=== PATIENT | male | born 1985 | race African-American/Black ===

== ENCOUNTER 2020-07-04 01:29 | Observation (INO) ==
[2020-07-04] MEDS ORDERED: NITROGLYCERIN 2% OINT 1 INCH/GM PACK TOP STA (02:02)
[2020-07-04] MEDS ORDERED: FUROSEMIDE 40 MG/4 ML VIAL IV STA (02:02)
[2020-07-04] MEDS ORDERED: FUROSEMIDE 40 MG/4 ML VIAL ONE (02:02)
[2020-07-04] MEDS ORDERED: NITROGLYCERIN 2% OINT 1 INCH/GM PACK TOP ONE (02:02)
[2020-07-04 02:39] LABS: Basophils % 0.2 % (0.0-0.8); Eosinophils # 0.2 10*3/uL (0.0-0.87); Eosinophils % 1.4 % (0.00-10.9); Hemoglobin 14.3 GM/DL (14.0-18.0); Immature Granulocytes % 0.4 %; Immature Granulocytes Absolute 0.04 #; Lymphocytes # 1.2 10*3/uL (1.4-4.0); Lymphocytes % 11.1 % (21.2-54.2); Mean Corpuscular HGB Conc 31.8 GM/DL (32-36); Mean Platelet Volume 10.6 FL (9.6-12.0); Monocytes % 5.5 % (1.7-12.7); Neutrophils % 81.4 % (38.7-73.9); Platelet Count 269 T/CUMM (130-400); Red Blood Count 4.89 MC/CUMM (3.8-5.5)
[2020-07-04 03:01] LABS: Alanine Aminotransferase 95 U/L (16-61); Albumin 3.5 G/DL (3.4-5.0); Alkaline Phosphatase 113 U/L (45-117); Aspartate Amino Transferase 90 U/L (0-37); Bilirubin,Total < 0.39 MG/DL (0.2-1.0); Blood Urea Nitrogen 17 MG/DL (7-18); Calcium 9.5 MG/DL (8.5-10.1); Carbon Dioxide 29 MMOL/L (21-32); Estimated Glom Filtration Rate 140 ML/MIN; Glucose 189 MG/DL (74-106); Osmolality,Calculated 279.8 MOS/KG (273-304); Potassium 3.4 MMOL/L (3.5-5.1); Sodium 137 MMOL/L (136-145); Total Protein 7.2 G/DL (6.4-8.3)
[2020-07-04] MEDS ORDERED: NICOTINE 21 MG/24 HR PATCH TRANSDERM PRN (05:45)
[2020-07-04] MEDS ORDERED: ONDANSETRON 4 MG/2 ML VIAL IV PRN (05:45)
[2020-07-04] MEDS ORDERED: ACETAMINOPHEN 325 MG TABLET PO PRN (05:45)
[2020-07-04] MEDS ORDERED: ENOXAPARIN 40 MG/0.4 ML SYRINGE SUBCUT SCH (06:00)
[2020-07-04] MEDS ORDERED: lisinopriL 10 MG TABLET PO STA (06:07)
[2020-07-04] MEDS: ALBUTEROL 2.5 MG/3 ML NEB RESP TX SCH ×3 (07:50→19:52)
[2020-07-04] MEDS ORDERED: lisinopriL 10 MG TABLET PO SCH (09:00)
[2020-07-04] MEDS: FUROSEMIDE 40 MG/4 ML VIAL IV SCH (09:10)
[2020-07-04] MEDS: POTASSIUM CHLORIDE 20 MEQ TABLET PO PRN (09:10)
[2020-07-04] MEDS: PANTOPRAZOLE 40 MG TABLET PO SCH (09:10)
[2020-07-04] MEDS ORDERED: POTASSIUM CHLORIDE 20 MEQ TABLET PO ONE (10:25)
[2020-07-04] MEDS ORDERED: lisinopriL 10 MG TABLET PO ONE (11:00)
[2020-07-04] MEDS ORDERED: ENOXAPARIN 100 MG/ML SYRINGE SUBCUT ONE (11:00)
[2020-07-04 11:03] LABS: Hepatitis B Core IgM Quant < 0.05 Index; Hepatitis B Surface Ag Quant 0.19 Index; Hepatitis B Surface Ag Result Non-Reactive (NonReactive); Hepatitis C Virus Ab Quant 0.06 Index; Hepatitis C Virus Ab Result Non-Reactive (NonReactive)
[2020-07-04] MEDS: cefTRIAXone 1,000 MG in SYRINGE 1 EACH IV SCH (11:38)
[2020-07-04] MEDS: AZITHROMYCIN INJ 500 MG in SODIUM CHLORIDE 0.9% 250 ML IV SCH (11:39)
[2020-07-04 14:11] LABS: Barbiturates Screen,Urine Negative (Negative); Benzodiazepines Screen,Urine Negative (Negative); Cannabinoid Screen,Urine Negative (Negative); Opiate Screen,Urine Negative (Negative); Phencyclidine Screen,Urine Negative (Negative)
[2020-07-04] MEDS: hydrALAZINE 20 MG/1 ML VIAL IV PRN (20:50)
[2020-07-04] MEDS: ENOXAPARIN 150 MG/ML SYRINGE SUBCUT SCH (22:20)
[2020-07-05] MEDS: ALBUTEROL 2.5 MG/3 ML NEB RESP TX SCH ×2 (00:19→07:24)
[2020-07-05 03:19] LABS: Basophils % 0.5 % (0.0-0.8); Eosinophils # 0.2 10*3/uL (0.0-0.87); Hematocrit 45.3 VOL% (42.0-52.0); Hemoglobin 14.6 GM/DL (14.0-18.0); Immature Granulocytes % 0.1 %; Immature Granulocytes Absolute 0.01 #; Lymphocytes # 2.2 10*3/uL (1.4-4.0); Lymphocytes % 30.2 % (21.2-54.2); Mean Corpuscular HGB Conc 32.2 GM/DL (32-36); Mean Corpuscular Volume 90.8 FL (87-102); Mean Platelet Volume 10.6 FL (9.6-12.0); Monocytes % 9.3 % (1.7-12.7); Neutrophils % 57.9 % (38.7-73.9); Platelet Count 251 T/CUMM (130-400); Red Blood Count 4.99 MC/CUMM (3.8-5.5); Red Cell Distribution Width 13.1 % (9.3-17.3); White Blood Count 7.3 T/CUMM (4-12)
[2020-07-05 03:41] LABS: Albumin 3.4 G/DL (3.4-5.0); Bilirubin,Total 0.8 MG/DL (0.2-1.0); Calcium 9.1 MG/DL (8.5-10.1); Osmolality,Calculated 280.5 MOS/KG (273-304); Potassium 3.2 MMOL/L (3.5-5.1); Risk Ratio 6.11; Total Protein 7.7 G/DL (6.4-8.3); VLDL CHOLESTEROL 33.4 MG/DL
[2020-07-05] MEDS: hydrALAZINE 20 MG/1 ML VIAL IV PRN ×2 (04:28→10:43)
[2020-07-05] MEDS: FUROSEMIDE 40 MG/4 ML VIAL IV SCH (08:43)
[2020-07-05] MEDS: PANTOPRAZOLE 40 MG TABLET PO SCH (08:46)
[2020-07-05] MEDS: POTASSIUM CHLORIDE 20 MEQ TABLET PO PRN ×2 (08:47→10:48)
[2020-07-05] MEDS ORDERED: lisinopriL 20 MG TABLET PO SCH (09:00)
[2020-07-05] MEDS: ENOXAPARIN 150 MG/ML SYRINGE SUBCUT SCH (10:44)
[2020-07-05] MEDS: AZITHROMYCIN INJ 500 MG in SODIUM CHLORIDE 0.9% 250 ML IV SCH (10:44)
[2020-07-05] MEDS: cefTRIAXone 1,000 MG in SYRINGE 1 EACH IV SCH (10:44)
[2020-07-05 11:36] VITALS: BP 186/90
[2020-07-05] MEDS ORDERED: carvediloL 12.5 MG TABLET PO SCH (13:00)
[2020-07-05] MEDS ORDERED: ATORVASTATIN 40 MG TABLET PO SCH (21:00)
== END 2020-07-05 15:09 | disposition home or self-care (01) ==
LOC: SUATTDRO → EDBD → EDUNIT# → N.ED 01:29 → N.EDINP 01:29 → SUATTDRO 05:45 → N.4E 08:00
PROVIDERS: ADMIT Internal Medicine; ATTEND Emergency Medicine

== ENCOUNTER 2021-05-10 20:37 | Inpatient (IN) ==
[2021-05-10] MEDS ORDERED: ADENOSINE 6 MG/2 ML VIAL ONE (20:41)
[2021-05-10] MEDS ORDERED: METOPROLOL TARTRATE 5 MG/5 ML VIAL IV ONE (20:50)
[2021-05-10] MEDS ORDERED: LABETALOL 20 MG/4 ML SYRINGE IV ONE (20:59)
[2021-05-10] MEDS ORDERED: AMIODARONE 150 MG/3 ML VIAL ONE (20:59)
[2021-05-10] MEDS ORDERED: AMIODARONE INJ 150 MG in DEXTROSE 5% 100 ML IV ONE (21:16)
[2021-05-10 21:21] LABS: PT Patient Result 11.5 SECS (10.5-12.0)
[2021-05-10 21:28] LABS: Basophils # 0.1 10*3/uL (0.0-0.2); Basophils % 0.5 % (0.0-0.8); Eosinophils # 0.3 10*3/uL (0.0-0.87); Eosinophils % 1.7 % (0.00-10.9); Hematocrit 50.8 VOL% (42.0-52.0); Hemoglobin 15.4 GM/DL (14.0-18.0); Immature Granulocytes Absolute 0.16 #; Lymphocytes # 8.6 10*3/uL (1.4-4.0); Mean Corpuscular HGB Conc 30.3 GM/DL (32-36); Mean Corpuscular Volume 95.7 FL (87-102); Mean Platelet Volume 10.3 FL (9.6-12.0); Monocytes % 7.9 % (1.7-12.7); NRBC # 0.02 10*3/uL; Neutrophils % 34.9 % (38.7-73.9); Platelet Count 374 T/CUMM (130-400); Red Blood Count 5.31 MC/CUMM (3.8-5.5); Red Cell Distribution Width 13.3 % (9.3-17.3); White Blood Count 15.9 T/CUMM (4-12)
[2021-05-10 21:30] LABS: ABG Base Excess -5.9 MMOL/L (-2.5-2.5); ABG HCO3 19.7 MMOL/L (20-26); ABG Oxygen Saturation 98.4 % (95-100); ABG TCO2 24.8 MMOL/L (23-27)
[2021-05-10] MEDS ORDERED: AMIODARONE INJ 450 MG in DEXTROSE 5% 241 ML IV SCH (21:30)
[2021-05-10 21:32] LABS: ABG PCO2 85.2 MM HG (35-48); ABG PH 7.115 (7.35-7.45)
[2021-05-10 21:37] LABS: Alanine Aminotransferase 62 U/L (16-61); Alkaline Phosphatase 125 U/L (45-117); Aspartate Amino Transferase 58 U/L (0-37); Bilirubin,Total < 0.39 MG/DL (0.20-1.00); Blood Urea Nitrogen 18 MG/DL (7-18); Calcium 9.3 MG/DL (8.5-10.1); Carbon Dioxide 27 MMOL/L (21-32); Estimated Glom Filtration Rate 0 ML/MIN; Glucose 298 MG/DL (74-106); Osmolality,Calculated 291.4 MOS/KG (273-304); Potassium 3.9 MMOL/L (3.5-5.1); Sodium 140 MMOL/L (136-145); Total Protein 8.3 G/DL (6.4-8.2)
[2021-05-10 21:39] LABS: Barbiturates Screen,Urine Negative (Negative); Benzodiazepines Screen,Urine Negative (Negative); Cannabinoid Screen,Urine Negative (Negative); Opiate Screen,Urine Negative (Negative); Phencyclidine Screen,Urine Negative (Negative)
[2021-05-10] MEDS ORDERED: LABETALOL 20 MG/4 ML SYRINGE IV STA (21:41)
[2021-05-10] MEDS ORDERED: METOPROLOL TARTRATE 5 MG/5 ML VIAL IV STA (21:41)
[2021-05-10] MEDS ORDERED: niCARdipine INJ 25 MG in SODIUM CHLORIDE 0.9% 240 ML IV PRN (21:50)
[2021-05-10] MEDS ORDERED: FUROSEMIDE 40 MG/4 ML VIAL IV STA (22:33)
[2021-05-10] MEDS ORDERED: ALBUTEROL 2.5 MG/3 ML NEB RESP TX PRN (22:35)
[2021-05-10] MEDS ORDERED: ONDANSETRON 4 MG/2 ML VIAL IV PRN (22:36)
[2021-05-10] MEDS ORDERED: ACETAMINOPHEN 325 MG TABLET PO PRN (22:36)
[2021-05-10] MEDS ORDERED: NICOTINE 21 MG/24 HR PATCH TRANSDERM PRN (22:36)
[2021-05-10] MEDS ORDERED: hydrALAZINE 20 MG/1 ML VIAL IV PRN (22:36)
[2021-05-10] MEDS ORDERED: DEXTROSE 50% 25 GM/50 ML SYRINGE IV PRN (22:42)
[2021-05-10] MEDS ORDERED: POTASSIUM CHLORIDE RIDER 10 MEQ/100 ML PREMIX IV PRN (22:42)
[2021-05-10] MEDS ORDERED: GLUCAGON 1 MG VIAL IM PRN (22:42)
[2021-05-10] MEDS ORDERED: MIDAZOLAM 10 MG/2 ML VIAL ONE (22:46)
[2021-05-10 22:54] LABS: Band Neutrophils 3 % (0-10); Eosinophils 4 % (0-10); Lymphocytes 53 % (20-55); Platelet Estimate Increased; Segmented Neutrophils 37 % (50-85); Total Cells Counted 100
[2021-05-10 22:55] LABS: Polychromasia Slight
[2021-05-10 22:56] LABS: Microcytosis Slight
[2021-05-10] MEDS: ALBUTEROL/IPRATROPIUM 3 ML NEB RESP TX SCH (23:00)
[2021-05-10 23:09] LABS: ABG Base Excess -1.9 MMOL/L (-2.5-2.5); ABG HCO3 22.8 MMOL/L (20-26); ABG Oxygen Saturation 96.6 % (95-100); ABG TCO2 26.1 MMOL/L (23-27)
[2021-05-10 23:12] LABS: ABG PCO2 75.5 MM HG (35-48); ABG PH 7.198 (7.35-7.45)
[2021-05-10 23:14] LABS: Risk Ratio 5.5; VLDL Cholesterol 63.8 MG/DL
[2021-05-10] MEDS: ENOXAPARIN 100 MG/ML SYRINGE SUBCUT SCH (23:37)
[2021-05-11] MEDS ORDERED: MEROPENEM 500 MG in SODIUM CHLORIDE 0.9% 100 ML IV ONE (00:02)
[2021-05-11 00:12] VITALS: BP 122/73
[2021-05-11 01:38] LABS: Bilirubin,Urine Negative (Negative); Blood, Urine Negative (Negative); Glucose,Urine (UA) >=500 mg/dL (Negative); Ketones,Urine Negative (Negative); Nitrite,Urine Negative (Negative); Protein,Urine >=500 MG/DL; RBC,Urine 1 /HPF (0-4); Urine Appearance CLEAR (Clear); Urine Color Straw (Yellow); Urine Specific Gravity 1.012 (1.001-1.035); Urine Urobilinogen < 2.0 EU/DL (<2.0)
[2021-05-11] MEDS: INSULIN REGULAR 100 UNIT/ML SUBCUT SCH ×4 (01:56→17:54)
[2021-05-11] MEDS ORDERED: SODIUM CHLORIDE 0.9% 1,000 ML IV STA (02:26)
[2021-05-11] MEDS ORDERED: ETOMIDATE 20 MG/10 ML VIAL IV ONE (02:26)
[2021-05-11] MEDS ORDERED: ROCURONIUM 100 MG/10 ML VIAL IV ONE (02:26)
[2021-05-11] MEDS ORDERED: MIDAZOLAM 2 MG/2 ML VIAL IV ONE (02:26)
[2021-05-11] MEDS ORDERED: ADENOSINE 6 MG/2 ML VIAL IV ONE (02:26)
[2021-05-11] MEDS: PIPERACILLIN/TAZOBACTAM 3,375 MG in SODIUM CHLORIDE 0.9% 100 ML IV SCH ×3 (02:35→17:52)
[2021-05-11 04:38] LABS: Basophils % 0.1 % (0.0-0.8); Eosinophils % 0.3 % (0.00-10.9); Hematocrit 44.3 VOL% (42.0-52.0); Hemoglobin 14.1 GM/DL (14.0-18.0); Immature Granulocytes % 0.6 %; Immature Granulocytes Absolute 0.07 #; Lymphocytes # 1.7 10*3/uL (1.4-4.0); Lymphocytes % 14.5 % (21.2-54.2); Mean Corpuscular HGB Conc 31.8 GM/DL (32-36); Mean Corpuscular Volume 91.3 FL (87-102); Mean Platelet Volume 9.8 FL (9.6-12.0); Monocytes % 7.8 % (1.7-12.7); Neutrophils % 76.7 % (38.7-73.9); Platelet Count 280 T/CUMM (130-400); Red Blood Count 4.85 MC/CUMM (3.8-5.5); Red Cell Distribution Width 13.4 % (9.3-17.3); White Blood Count 11.4 T/CUMM (4-12)
[2021-05-11 05:09] LABS: Albumin 3.3 G/DL (3.4-5.0); Bilirubin,Total 0.5 MG/DL (0.20-1.00); Calcium 8.8 MG/DL (8.5-10.1); Potassium 4.3 MMOL/L (3.5-5.1); Total Protein 7.4 G/DL (6.4-8.2)
[2021-05-11 05:11] LABS: ABG Base Excess 2.8 MMOL/L (-2.5-2.5); ABG HCO3 28.4 MMOL/L (20-26); ABG Oxygen Saturation 98.6 % (95-100); ABG PH 7.399 (7.35-7.45); ABG PO2 123.3 MM HG (80-95); ABG TCO2 29.8 MMOL/L (23-27)
[2021-05-11] MEDS: ALBUTEROL/IPRATROPIUM 3 ML NEB RESP TX SCH ×3 (07:45→20:48)
[2021-05-11] MEDS: FUROSEMIDE 40 MG/4 ML VIAL IV SCH ×2 (08:58→15:49)
[2021-05-11] MEDS ORDERED: ENOXAPARIN 40 MG/0.4 ML SYRINGE SUBCUT SCH (09:00)
[2021-05-11] MEDS: ASCORBIC ACID 500 MG TABLET PO SCH ×2 (09:04→20:22)
[2021-05-11] MEDS: hydrALAZINE 25 MG TABLET PO SCH ×3 (09:04→20:22)
[2021-05-11] MEDS: amLODIPine 5 MG TABLET PO SCH (09:04)
[2021-05-11] MEDS: carvediloL 25 MG TABLET PO SCH ×2 (09:04→20:22)
[2021-05-11] MEDS: ASPIRIN CHEW 81 MG TABLET PO SCH (09:04)
[2021-05-11] MEDS: PANTOPRAZOLE 40 MG VIAL IV SCH (09:05)
[2021-05-11] MEDS: ATORVASTATIN 40 MG TABLET PO SCH (20:22)
[2021-05-12] MEDS: ALBUTEROL/IPRATROPIUM 3 ML NEB RESP TX SCH ×4 (00:20→19:55)
[2021-05-12] MEDS: ENOXAPARIN 100 MG/ML SYRINGE SUBCUT SCH ×2 (00:21→23:36)
[2021-05-12] MEDS: INSULIN REGULAR 100 UNIT/ML SUBCUT SCH ×5 (00:21→23:36)
[2021-05-12] MEDS: PIPERACILLIN/TAZOBACTAM 3,375 MG in SODIUM CHLORIDE 0.9% 100 ML IV SCH ×3 (00:22→16:46)
[2021-05-12 04:24] LABS: Basophils % 0.5 % (0.0-0.8); Eosinophils # 0.2 10*3/uL (0.0-0.87); Eosinophils % 2.6 % (0.00-10.9); Hematocrit 43.3 VOL% (42.0-52.0); Hemoglobin 13.9 GM/DL (14.0-18.0); Immature Granulocytes % 0.4 %; Immature Granulocytes Absolute 0.03 #; Lymphocytes # 2.3 10*3/uL (1.4-4.0); Lymphocytes % 30.7 % (21.2-54.2); Mean Corpuscular HGB Conc 32.1 GM/DL (32-36); Mean Corpuscular Volume 91.2 FL (87-102); Mean Platelet Volume 10.3 FL (9.6-12.0); Monocytes % 8.6 % (1.7-12.7); Neutrophils % 57.2 % (38.7-73.9); Platelet Count 274 T/CUMM (130-400); Red Blood Count 4.75 MC/CUMM (3.8-5.5); Red Cell Distribution Width 13.6 % (9.3-17.3); White Blood Count 7.6 T/CUMM (4-12)
[2021-05-12 04:34] LABS: ABG Base Excess 4.8 MMOL/L (-2.5-2.5); ABG HCO3 28.7 MMOL/L (20-26); ABG PCO2 40.1 MM HG (35-48); ABG PH 7.473 (7.35-7.45); ABG PO2 149.8 MM HG (80-95)
[2021-05-12 04:48] LABS: Albumin 3.2 G/DL (3.4-5.0); Bilirubin,Total 0.5 MG/DL (0.20-1.00); Osmolality,Calculated 282.4 MOS/KG (273-304)
[2021-05-12] MEDS: POTASSIUM BICARB EFFERVESCENT 20 MEQ TAB.EFF PER TUBE PRN ×3 (05:03→07:46)
[2021-05-12] MEDS: FUROSEMIDE 40 MG/4 ML VIAL IV SCH ×2 (07:43→15:11)
[2021-05-12] MEDS: PANTOPRAZOLE 40 MG VIAL IV SCH (08:00)
[2021-05-12] MEDS: ASPIRIN CHEW 81 MG TABLET PO SCH (08:03)
[2021-05-12] MEDS: hydrALAZINE 25 MG TABLET PO SCH ×3 (08:03→20:06)
[2021-05-12] MEDS: carvediloL 25 MG TABLET PO SCH ×2 (08:03→20:06)
[2021-05-12] MEDS: amLODIPine 5 MG TABLET PO SCH (08:03)
[2021-05-12] MEDS: ASCORBIC ACID 500 MG TABLET PO SCH ×2 (08:04→20:06)
[2021-05-12] MEDS: POTASSIUM CHLORIDE 20 MEQ TABLET PO PRN ×2 (11:27→17:44)
[2021-05-12] MEDS: ATORVASTATIN 40 MG TABLET PO SCH (20:06)
[2021-05-13] MEDS: ALBUTEROL/IPRATROPIUM 3 ML NEB RESP TX SCH ×3 (00:20→12:23)
[2021-05-13] MEDS: PIPERACILLIN/TAZOBACTAM 3,375 MG in SODIUM CHLORIDE 0.9% 100 ML IV SCH ×2 (00:53→08:38)
[2021-05-13 04:30] LABS: ABG Base Excess 3.7 MMOL/L (-2.5-2.5); ABG HCO3 27.6 MMOL/L (20-26); ABG Oxygen Saturation 95.9 % (95-100); ABG PCO2 44.7 MM HG (35-48); ABG PH 7.418 (7.35-7.45); ABG PO2 81.5 MM HG (80-95); ABG TCO2 24.8 MMOL/L (23-27); Allen Test Positive
[2021-05-13 05:51] LABS: Basophils % 0.4 % (0.0-0.8); Eosinophils # 0.2 10*3/uL (0.0-0.87); Eosinophils % 2.6 % (0.00-10.9); Hematocrit 44.1 VOL% (42.0-52.0); Immature Granulocytes % 0.2 %; Immature Granulocytes Absolute 0.02 #; Lymphocytes # 1.8 10*3/uL (1.4-4.0); Lymphocytes % 21.5 % (21.2-54.2); Mean Corpuscular HGB Conc 31.7 GM/DL (32-36); Mean Corpuscular Volume 92.1 FL (87-102); Mean Platelet Volume 10.6 FL (9.6-12.0); Monocytes % 8.8 % (1.7-12.7); Neutrophils % 66.5 % (38.7-73.9); Platelet Count 259 T/CUMM (130-400); Red Blood Count 4.79 MC/CUMM (3.8-5.5); Red Cell Distribution Width 14.2 % (9.3-17.3); White Blood Count 8.2 T/CUMM (4-12)
[2021-05-13 06:16] LABS: Albumin 3.4 G/DL (3.4-5.0); Bilirubin,Total 0.7 MG/DL (0.20-1.00); Calcium 9.5 MG/DL (8.5-10.1); Osmolality,Calculated 274.8 MOS/KG (273-304); Potassium 3.2 MMOL/L (3.5-5.1); Total Protein 7.8 G/DL (6.4-8.2)
[2021-05-13] MEDS: INSULIN REGULAR 100 UNIT/ML SUBCUT SCH ×2 (06:23→11:32)
[2021-05-13] MEDS: POTASSIUM BICARB EFFERVESCENT 20 MEQ TAB.EFF PER TUBE PRN (07:00)
[2021-05-13] MEDS: carvediloL 25 MG TABLET PO SCH (08:33)
[2021-05-13] MEDS: amLODIPine 5 MG TABLET PO SCH (08:33)
[2021-05-13] MEDS: POTASSIUM CHLORIDE 20 MEQ TABLET PO PRN (08:33)
[2021-05-13] MEDS: ASCORBIC ACID 500 MG TABLET PO SCH (08:33)
[2021-05-13] MEDS: ASPIRIN CHEW 81 MG TABLET PO SCH (08:33)
[2021-05-13] MEDS: hydrALAZINE 25 MG TABLET PO SCH ×2 (08:33→14:52)
[2021-05-13] MEDS: FUROSEMIDE 40 MG/4 ML VIAL IV SCH (08:35)
[2021-05-13] MEDS: PANTOPRAZOLE 40 MG VIAL IV SCH (08:37)
[2021-05-13] MEDS ORDERED: lisinopriL 20 MG TABLET PO SCH (09:00)
== END 2021-05-13 15:26 | disposition home or self-care (01) | DRG 208 ==
LOC: EDUNIT# → EDBD → N.ED 20:37 → N.CC 22:35
PROVIDERS: ADMIT Internal Medicine; ATTEND Internal Medicine